=== PATIENT | male | born 1985 | race American Indian/Alaskan Native ===

== ENCOUNTER 2020-03-14 14:18 | Emergency (ER) | payer OTHER, MEDICAID ==
[2020-03-14 15:41] VITALS: BP 122/85
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
[2020-03-14] MEDS ORDERED: oxyCODONE /ACETAMINOPHEN 5-325MG TAB PO ONE (20:25)
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
== END 2020-03-14 21:20 | disposition home or self-care (01) ==
LOC: ED 14:18
DX: S82.61XA Displaced fracture of lateral malleolus of right fibula, initial encounter for closed fracture (principal); S20.211A Contusion of right front wall of thorax, initial encounter; K21.9 Gastro-esophageal reflux disease without esophagitis; G43.909 Migraine, unspecified, not intractable, without status migrainosus; Z87.442 Personal history of urinary calculi; Z98.890 Other specified postprocedural states; Z79.1 Long term (current) use of non-steroidal anti-inflammatories (NSAID); Z79.899 Other long term (current) drug therapy; V29.40XA Motorcycle driver injured in collision with unspecified motor vehicles in traffic accident, initial encounter; Y93.89 Activity, other specified; Y92.410 Unspecified street and highway as the place of occurrence of the external cause; Y99.8 Other external cause status
CPT/HCPCS: 72070; 72100

== ENCOUNTER 2022-01-04 02:40 | Emergency (ER) | payer OTHER, MEDICAID ==
[2022-01-04 02:47] VITALS: BP 140/90
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
== END 2022-01-04 04:41 ==
LOC: ED 02:40
DX: S20.219A Contusion of unspecified front wall of thorax, initial encounter (principal); F10.129 Alcohol abuse with intoxication, unspecified; Y08.89XA Assault by other specified means, initial encounter; Y93.89 Activity, other specified; Y92.89 Other specified places as the place of occurrence of the external cause; Y99.8 Other external cause status
CPT/HCPCS: 99283